=== PATIENT | male | born 1985 | race Caucasian/White ===

== ENCOUNTER 2025-01-04 18:10 | Emergency (ER) | payer SELFPAY ==
[2025-01-04 18:17] VITALS: BP 153/62; PULSE 93; RESP 17; TEMP 36.7; O2SAT 99
--- NOTE | 2025-01-04 18:23 | W.ED.GENADLT ---
HPI - General Adult General: Chief complaint: General Medical Stated complaint: needs drug tested Time Seen by Provider: 01/04/25 18:16 Source: patient Mode of arrival: ambulatory Limitations: no limitations History of Present Illness: 39-year-old male who states that he needs a urine drug screen he states he has an adopted child and some person needs to have a drug screen on him for documentation he has no medical complaints he only is requesting a drug screen denies pain or fever or any other complaints Associated symptoms: Deny chest pain, headache(s) or rash Related Data Home Medications ?Medication ?Instructions ?Recorded ?Confirmed No Known Home Medications 04/15/21 02/02/23 Allergies Allergy/AdvReac Type Severity Reaction Status Date / Time No Known Allergies Allergy Verified 02/02/23 15:17 Review of Systems Const: Denies: fever(s) Card: Denies: chest pain GI: Denies: abdominal pain Skin/Breast: Denies: rash Neuro: Denies: headache(s) PFSH ED PFSH: Social History Smoking and tobacco/nicotine status: never used tobacco/nicotine Physical Exam Const: COMMON NORMALS: no acute distress HENMT: COMMON NORMALS: normocephalic HEAD & SCALP: normocephalic Chest: COMMONS NORMALS: normal inspection of the chest Resp: COMMON NORMALS: normal respiratory effort Extremity: COMMON NORMALS: normal to inspection Course Vital Signs: Vital signs: Vital Signs Temperature 98.1 F 01/04/25 18:17 Pulse Rate 93 01/04/25 18:17 Respiratory Rate 17 01/04/25 18:17 Blood Pressure 153/62 01/04/25 18:17 Pulse Oximetry 99 01/04/25 18:17 Oxygen Delivery Me thod Room Air 01/04/25 18:17 MDM - General Adult Medical Decision Making Patient presents here with needing a drug screen he has no other medical complaints did run a drug screen he stable for discharge at this time No radiology studies performed this visit Discharge Plan Discharge Patient Disposition: Home Clinical Impression: Adult wellness visit Condition: Stable Prescriptions: No Action No Known Home Medications Discharge Orders: Discharge ED (Routine); Ordered 01/04/25 Ordered By: Wanda Peralta Discharge Diet: Advance as tolerated Discharge Activity: Resume usual activity Print Language: Icelandic Coding Level of Care Code ED District Wildlife Manager for Trevor Gonzáles
[2025-01-04 18:27] VITALS: BP 148/65; PULSE 86; O2SAT 99
[2025-01-04 18:38] LABS: Amphetamines Screen Urine Negative (Negative); Barbiturates Screen Urine Negative (Negative); Benzodiazepines Screen Urine Negative (Negative); Cocaine Screen Urine Negative (Negative); Opiate Screen Urine Negative (Negative); PCP Screen Urine Negative (Negative); THC Screen Urine Negative (Negative)
== END 2025-01-04 18:27 | disposition home or self-care (01) ==
PROVIDERS: Emergency Provider Emergency Medicine
DX: Z00.00 Encounter for general adult medical examination without abnormal findings (principal)
CPT/HCPCS: 80306; 99283

== ENCOUNTER → 2025-04-01 14:46 | Outpatient (BNVA) | payer SELFPAY | PROVIDERS: PCP Family Medicine; Visit Provider Nurse Practitioner Family | DX: R60.0 Localized edema (principal) | CPT/HCPCS: 73140 ==

== ENCOUNTER 2025-06-12 16:02 | Outpatient (RCR) | payer OTHER, SELFPAY | END 2025-06-23 23:59 | disposition home or self-care (01) | LOC: SPT 16:02 | PROVIDERS: Visit Provider Family Medicine | DX: S39.012D Strain of muscle, fascia and tendon of lower back, subsequent encounter (principal); X58.XXXD Exposure to other specified factors, subsequent encounter | CPT/HCPCS: 97110; 97161 ==

== ENCOUNTER 2025-06-24 05:00 | Outpatient (RCR) | payer OTHER, SELFPAY | END 2025-07-15 09:40 | disposition home or self-care (01) | LOC: SPT 05:00 | PROVIDERS: PCP Family Medicine; Visit Provider Family Medicine | DX: S39.012D Strain of muscle, fascia and tendon of lower back, subsequent encounter (principal); X58.XXXD Exposure to other specified factors, subsequent encounter | CPT/HCPCS: 97110 ==

== ENCOUNTER 2025-07-04 14:17 | Outpatient (CLI) | payer OTHER, SELFPAY ==
--- NOTE | 2025-07-04 14:30 | MR_ITS ---
WS: [id number] MRI LUMBAR SPINE NONCONTRAST HISTORY: S39.012A - Strain of muscle, fascia and tendon of lower b..., RIGHT leg pain. COMPARISON: None available. TECHNIQUE: Sagittal and axial multisequence imaging is submitted. Small amount of marrow edema along the adjacent endplates of L3 and L4. No compression fractures. Mild disc space narrowing and desiccation at L3-4. Conus terminates normally at L1-2 disc level. Diffuse narrowing of the central canal the lumbar spine. In part this may be congenital and due to short pedicles. L1-L2: Mild disc bulging. Very minimal foraminal narrowing. L2-L3: Mild annular disc bulging with mild osteophytic ridging. Small thecal sac. Mild central, subarticular recess and foraminal stenosis. L3-L4: Diffuse disc bulging. Central disc protrusions extend into the lateral recesses. Bilateral foraminal disc protrusions, RIGHT greater than LEFT. Mild ligamentum flavum and facet arthritis. Moderate to severe central with bilateral subarticular recess stenosis. Moderate to severe RIGHT and moderate LEFT foraminal stenosis. L4-L5: Diffuse asymmetric disc bulging. Ligamentum flavum and facet arthritis. Moderate to severe central with bilateral subarticular recess stenosis. Severe RIGHT foraminal stenosis and moderate LEFT foraminal stenosis. L5-S1: Diffuse disc bulging with a central disc protrusion contacting the S1 nerve roots. Moderate central, subarticular recess and bilateral foraminal stenosis. Facet arthritis. MR/MR lumbar spine wo con* [id number] IMPRESSION: 1. Small caliber thecal sac may be congenital or due to short pedicles. 2. Small amount of marrow edema in the adjacent endplates of L3 and L4. 3. Multilevel significant stenoses from L3-4 to L5-S1. Stenoses due to combina tion of osteophytosis, disc disease and protrusions and facet arthritis. 4. L3-4: Moderate to severe central with bilateral subarticular recess stenosi s. Moderate to severe RIGHT and moderate LEFT foraminal stenosis. Stenosis due to disc disease with protrusions into the lateral recesses and foraminal disc p rotrusions and osteophytosis. 5. L4-5: Moderate to severe central and bilateral subarticular recess stenosis . Severe RIGHT foraminal stenosis and moderate LEFT foraminal stenosis. 6. L5-S1: Central disc protrusion contacting the S1 nerve roots. Moderate cent ral, subarticular recess and bilateral foraminal stenosis. 7. Mild central, subarticular recess and foraminal stenosis at L2-3.
== END 2025-07-04 14:18 | disposition home or self-care (01) ==
LOC: RAD 14:18
PROVIDERS: PCP Family Medicine; Visit Provider Family Medicine
DX: S39.012A Strain of muscle, fascia and tendon of lower back, initial encounter (principal); M51.06 Intervertebral disc disorders with myelopathy, lumbar region; X58.XXXA Exposure to other specified factors, initial encounter
CPT/HCPCS: 72148

== ENCOUNTER 2025-08-02 17:13 | Outpatient (CLI) | payer OTHER, SELFPAY ==
--- NOTE | 2025-08-02 17:17 | XR_ITS ---
WS: [id number] XR lumbar spine 2-3V* [id number] REASON FOR EXAM: back pain FINDINGS: Relatively normal lumbar lordosis. No compression deformity or focal lesion of the lumbar vertebrae. Limbus vertebrae at L4. Mild narrowing of the intervertebral disc space at L3-L4 mild endplate sclerosis and osteophytosis. No spondylolysis or significant spondylolisthesis. With minimal endplate sclerosis and osteophytosis. Mild narrowing of the L5-S1 disc space with XR/XR lumbar spine 2-3V* [id number] IMPRESSION: Minimal to mild degenerative spondylosis as above.
== END 2025-08-02 17:14 | disposition home or self-care (01) ==
LOC: RAD 17:14
PROVIDERS: PCP Family Medicine; Visit Provider Orthopaedic Surgery
DX: M51.16 Intervertebral disc disorders with radiculopathy, lumbar region (principal); M51.370 Other intervertebral disc degeneration, lumbosacral region with discogenic back pain only
CPT/HCPCS: 72100